=== PATIENT | female | born 1990 | race Caucasian/White ===

== ENCOUNTER 2021-08-23 06:10 | Day surgery (SDC) | payer MEDICAID ==
[~2021-08-23] VITALS: Ht 177.8 cm; Wt 133.8 kg
[2021-08-23 06:44] LABS: HCG,QUAL RESULT NEGATIVE (NEGATIVE)
[2021-08-23] MEDS ORDERED: MIDAZOLAM HCL 5 MG/5 ML VIAL ONE ×2 (07:48→08:03)
[2021-08-23] MEDS ORDERED: fentaNYL CITRATE/PF 100 MCG/2 ML AMP ONE ×2 (07:48→08:03)
[2021-08-23] MEDS ORDERED: DIPHENHYDRAMINE INJ 50 MG/ML VIAL ONE (08:00)
[2021-08-23 13:40] VITALS: BP_SYST 117
== END 2021-08-23 09:20 | disposition home or self-care (01) ==
LOC: SDS 06:10 → SMU 06:11 → SDS 09:20
PROVIDERS: ATTEND Internal Medicine
DX: R13.10 Dysphagia, unspecified (principal); K29.50 Unspecified chronic gastritis without bleeding; E11.9 Type 2 diabetes mellitus without complications; K21.9 Gastro-esophageal reflux disease without esophagitis; Z79.84 Long term (current) use of oral hypoglycemic drugs; Z79.899 Other long term (current) drug therapy; Z20.822 Contact with and (suspected) exposure to COVID-19
CPT/HCPCS: 36415 ×2; 43239; 82962; 84703; 87081; 87426; 87635; 88305; 88312; 88313; 99152; G0378; J1200; J2250; J3010; U0003